=== PATIENT | male | born 1965 | race Caucasian/White ===

== ENCOUNTER → 2020-12-22 | Outpatient (CLI) | payer BC | END | disposition home or self-care (01) | LOC: COVID19 16:10 | PROVIDERS: ATTEND Student in an Organized Health Care Education/Training Program | DX: Z20.822 Contact with and (suspected) exposure to COVID-19 (principal) ==

== ENCOUNTER 2021-09-26 11:44 | Emergency (ER) | payer OTHER, BC ==
[~2021-09-26] VITALS: Ht 190.5 cm; Wt 113.4 kg
[2021-09-26] MEDS ORDERED: METHOCARBAMOL500 M1 PO (12:23)
[2021-09-26] MEDS ORDERED: PREDNISONE50 MG PO (12:23)
[2021-09-26] MEDS ORDERED: NAPROSYN EC375 MG PO (12:23)
== END 2021-09-26 12:26 | disposition home or self-care (01) ==
LOC: ED 11:44
DX: M54.50 Low back pain, unspecified (principal)